=== PATIENT | female | born 1960 | race Two or more races ===

== ENCOUNTER 2021-05-04 12:42 | Outpatient (CLI) | payer OTHER | END 2021-05-04 12:51 | disposition home or self-care (01) | LOC: RAD 12:42 | PROVIDERS: ATTEND Orthopaedic Surgery | DX: M25.561 Pain in right knee (principal); M25.562 Pain in left knee; M79.672 Pain in left foot ==

== ENCOUNTER → 2021-05-04 | Outpatient (CLI) | payer OTHER | END | disposition home or self-care (01) | LOC: LAB 14:21 | PROVIDERS: ATTEND Radiology Diagnostic Radiology | DX: I15.0 Renovascular hypertension (principal) ==

== ENCOUNTER 2021-05-08 09:06 | Outpatient (CLI) | payer OTHER | END 2021-05-08 09:26 | disposition home or self-care (01) | LOC: MRI 09:06 | DX: I15.0 Renovascular hypertension (principal) | CPT/HCPCS: 74185 ==